=== PATIENT | female | born 1970 | race Caucasian/White ===

== ENCOUNTER 2017-01-08 17:45 | Emergency (ER) | payer BC, OTHER ==
--- NOTE | 2017-01-08 18:15 | PDOC ---
History of Present Illness - General History Source: Patient Exam Limitations: No Limitations <Carlos Manuel Diamond - Last Filed: 01/08/17 18:39> <Rob Oliver - Last Filed: 01/09/17 08:28> - General Chief Complaint: Chest Pain Stated Complaint: CHEST PAIN Time Seen by Provider: 01/08/17 18:14 - History of Present Illness Initial Comments: 01/08/17 18:40 The patient is a 46 year old female presenting with her fiance, with a significant past medical history of HLD and Thyroid CA s/p thiorectomy (3 years ago) who presents to the emergency department with chest pain today while at work today. She describes her chest pain as mild, without radiation or modifying factors. She notes that the pain was intermittent in nature. She also states that she has had similar kinds of pains in the past. She denies any family history of coronary artery disease. She also reports that she experience mild pain underneath her armpit and diaphoresis associated with the chest pain. The patient denies shortness of breath, headache and dizziness. Denies fever, chills, nausea, vomit, diarrhea and constipation. Allergies: None Past surgical history: Thiroectomy, cholecystectomy and Social history: Occasional alcohol use. No tobacco or drug use reported (Carlos Manuel Diamond) Past History <Carlos Manuel Diamond - Last Filed: 01/08/17 18:39> - Past Medical History Psychiatric Problems: Yes (ANXIETY) Thyroid Disease: Yes - Psycho/Social/Smoking Cessation Hx Anxiety: Yes Suicidal Ideation: No Smoking History: Former smoker <Rob Oliver - Last Filed: 01/09/17 08:28> - Past Medical History Allergies/Adverse Reactions: Allergies Allergy/AdvReac Type Severity Reaction Status Date / Time No Known Allergies Allergy Verified 01/08/17 17:48 Home Medications: Ambulatory Orders Clonazepam [Klonopin -] 0.5 mg PO PRN 01/08/17 Levothyroxine 137 mcg PO DAILY 01/08/17 Rosuvastatin Calcium [Crestor] 5 mg PO DAILY 01/08/17 Review of Systems - Review of Systems Able to Perform ROS?: Yes <Carlos Manuel Diamond - Last Filed: 01/08/17 18:39> <Rob Oliver - Last Filed: 01/09/17 08:28> - Review of Systems Comments:: 01/08/17 18:40 GENERAL/CONSTITUTIONAL: +Diaphoresis. No fever or chills. No weakness. HEAD, EYES, EARS, NOSE AND THROAT: No change in vision. No ear pain or discharge. No sore throat. CARDIOVASCULAR: +Chest pain. No shortness of breath RESPIRATORY: No cough, wheezing, or hemoptysis. GASTROINTESTINAL: No nausea, vomiting, diarrhea or constipation. GENITOURINARY: No dysuria, frequency, or change in urination. MUSCULOSKELETAL: No joint or muscle swelling or pain. No neck or back pain. SKIN: No rash NEUROLOGIC: No headache, vertigo, loss of consciousness, or change in strength/ sensation. ENDOCRINE: No increased thirst. No abnormal weight change HEMATOLOGIC/LYMPHATIC: No anemia, easy bleeding, or history of blood clots. ALLERGIC/IMMUNOLOGIC: No hives or skin allergy. (Carlos Manuel Diamond) *Physical Exam <Carlos Manuel Diamond - Last Filed: 01/08/17 18:39> <Rob Oliver - Last Filed: 01/09/17 08:28> - Vital Signs Last Vital Signs Temp Pulse Resp BP Pulse Ox 98.3 F 72 16 99/68 100 01/08/17 18:06 01/08/17 18:55 01/08/17 18:55 01/08/17 18:55 01/08/17 18:06 - Physical Exam Comments: 01/08/17 18:40 GENERAL: Awake, alert, and fully oriented, in no acute distress HEAD: No signs of trauma, normocephalic, atraumatic EYES: PERRLA, EOMI, sclera anicteric, conjunctiva clear ENT: Auricles normal inspection, hearing grossly normal, nares patent, oropharynx clear without exudates. Moist mucosa NECK: Normal ROM, supple, no lymphadenopathy, JVD, or masses LUNGS: No distress, speaks full sentences, clear to auscultation bilaterally HEART: Regular rate and rhythm, normal S1 and S2, no murmurs, rubs or gallops, peripheral pulses normal and equal bilaterally. ABDOMEN: Soft, nontender, normoactive bowel sounds. No guarding, no rebound. No masses EXTREMITIES: Normal inspection, Normal range of motion, no edema. No clubbing or cyanosis. NEUROLOGICAL: Cranial nerves II through XII grossly intact. Normal speech, normal gait, no focal sensorimotor deficits SKIN: Warm, Dry, normal turgor, no rashes or lesions noted. (Carlos Manuel Diamond) Medical Decision Making <Carlos Manuel Diamond - Last Filed: 01/08/17 18:39> <Rob Oliver - Last Filed: 01/09/17 08:28> - Medical Decision Making 01/08/17 18:54 Cardiac exam is normal. The past history of similar episodes accompanied by anxiety symptoms suggest that this is anxiety/panic attack. EKG is normal. Risk factors are negligible, consisting only of mildly elevated cholesterol. Patient in no pain or other distress during emergency room visit. Pain had completely resolved. There is sure, referred to primary physician, follow-up if further symptoms. Return to ER if necessary for recheck. Fully ambulatory and discharged with her boyfriend to follow-up as directed (Rob Oliver) *DC/Admit/Observation/Transfer <Carlos Manuel Diamond - Last Filed: 01/08/17 18:39> - Discharge Dispostion Admit: No <Rob Oliver - Last Filed: 01/09/17 08:28> Diagnosis at time of Disposition: Non-cardiac chest pain - Discharge Dispostion Disposition: HOME Condition at time of disposition: Stable - Patient Instructions Printed Discharge Instructions: DI for Atypical Chest Pain, DI for Anxiety -- Adult Additional Instructions: Rest, relaxation techniques as discussed, follow-up with your primary physician if symptoms persist If symptoms worsen or new symptoms develop such as lightheadedness, dizziness, increasing chest pain, shortness of breath, nausea, or perspiring, return to the ER for further evaluation. - Attestations Scribe Attestion: 01/08/17 18:41 Documentation prepared by Carlos Manuel Diamond, acting as medical office scheduler for Rob Olguin DO (Carlos Manuel Diamond)
[2017-01-08 18:25] VITALS: TEMP 98.3; BMI 30.4
[2017-01-08 18:56] VITALS: BP 99/68; PULSE 72
--- NOTE | 2017-01-09 12:50 | EKG ---
Test Reason : Blood Pressure : / mmHG Vent. Rate : 073 BPM Atrial Rate : 073 BPM P-R Int : 152 ms QRS Dur : 072 ms QT Int : 424 ms P-R-T Axes : 053 031 040 degrees QTc Int : 467 ms NORMAL SINUS RHYTHM NORMAL ECG WHEN COMPARED WITH ECG OF 10-JAN-2014 11:41, NO SIGNIFICANT CHANGE WAS FOUND Confirmed by CHRIS MAGUIRE MD ([id number]) on 01/09/2017 12:49:46 PM Referred By: ZENOBIA Confirmed By:CHRIS MAGUIRE MD
== END 2017-01-08 18:58 | disposition home or self-care (01) ==
LOC: FER 17:45
DX: R07.89 Other chest pain (principal); F41.9 Anxiety disorder, unspecified; E78.5 Hyperlipidemia, unspecified; Z85.850 Personal history of malignant neoplasm of thyroid; Z87.891 Personal history of nicotine dependence
CPT/HCPCS: 93005; 99283-25